=== PATIENT | male | born 1985 | race African-American/Black ===

== ENCOUNTER 2024-08-21 08:41 | Inpatient (IN) ==
[2024-08-21] MEDS: SODIUM CHLORIDE 0.9% 1,000 ML IV ONE (09:07)
[2024-08-21] MEDS: ONDANSETRON INJ 2 MG/ML 2 ML VIAL IV STA (09:07)
--- NOTE | 2024-08-21 09:24 | Emergency Department Note ---
ED Provider Note History of Present Illness Chief Complaint: Weakness Stated Complaint: WEAKNESS, STOMACH ACHE Time Seen by Provider: 08/21/24 08:48 Source: patient Mode of arrival: ambulatory Limitations: no limitations Patient is a 38-year-old male who presents to the emergency department with complaints of diffuse abdominal pain, nausea, vomiting, and diarrhea. Patient states that he got a tetanus vaccine on Sunday and states that he has not felt well since. Patient states he is unsure if that is related. Patient denies any shortness of breath or cough. Home Medications Medication Instructions Recorded Confirmed Type acetaminophen 500 mg capsule 1,000 mg (2 x 500 mg) PO Q6H PRN 08/23/24 Rx fever or pain #30 caps meloxicam 7.5 mg tablet 7.5 mg PO DAILY PRN pain 14 days 08/23/24 Rx #14 tabs ondansetron 4 mg disintegrating 4 mg PO DAILY PRN nausea and 08/23/24 Rx tablet vomiting 7 days #20 tabs Allergies Allergy/AdvReac Type Severity Reaction Status Date / Time No Known Allergies Allergy Unverified 08/21/24 12:54 Past Med/Surg History Problem List (Updated 08/21/24 @ 14:27 by Maki Yu PA-C) Rotavirus infection Tobacco use disorder Abnormal urinalysis SBO (small bowel obstruction) (Acute) Social History Smoking Status: Current every day smoker Tobacco Type: Cigarettes Do You Dip or Chew Tobacco: No; Hx Alcohol Use: Yes Hx Substance Use: No Preferred Language: [place] Irish Communication Ability: Effective Process Operator Required: No Beliefs That Will Affect Care: None Current Living Situation: Alone Current Living Situation Comment: Home with girlfriend Feels Safe at Home: Yes Assistive Devices: None Physical Exam Vital Signs Vital Signs - 24 hr 08/21/24 08:42 08/21/24 08:54 08/21/24 08:54 Temperature 36.4 C L Temperature Source Temporal Artery Scan Pulse Rate 110 H 84 Pulse Rate [Apical] Pulse Rate from SpO2 Sensor Respiratory Rate 18 16 Respiratory Effort / Characteristics Non-Labored Spontaneous Respiratory Depth Normal Respiratory Pattern Regular Blood Pressure 151/91 H Blood Pressure [Right Arm] Blood Pressure Mean 111 Blood Pressure Mean [Right Arm] Blood Pressure Position [Right Arm] Pulse Oximetry 98 97 97 Oxygen Delivery Method Room Air Room Air Room Air Sepsis Recent Fever Within 48 Hours No Sepsis New/Unexplained Change in Mental Status No Sepsis Action Taken by Nursing No Action Required 08/21/24 09:13 08/21/24 10:24 08/21/24 11:33 Temperature Temperature Source Pulse Rate 95 H 83 Pulse Rate [Apical] 81 Pulse Rate from SpO2 Sensor 82 Respiratory Rate 18 13 Respiratory Effort / Characteristics Non-Labored Spontaneous Respiratory Depth Normal Respiratory Pattern Regular Blood Pressure Blood Pressure [Right Arm] 127/81 Blood Pressure Mean Blood Pressure Mean [Right Arm] 96 Blood Pressure Position [Right Arm] Sitting Pulse Oximetry 99 98 Oxygen Delivery Method Room Air Sepsis Recent Fever Within 48 Hours Sepsis New/Unexplained Change in Mental Status Sepsis Action Taken by Nursing 08/21/24 12:00 Temperature Temperature Source Pulse Rate 81 Pulse Rate [Apical] Pulse Rate from SpO2 Sensor 83 Respiratory Rate 13 Respiratory Effort / Characteristics Respiratory Depth Respiratory Pattern Blood Pressure Blood Pressure [Right Arm] Blood Pressure Mean Blood Pressure Mean [Right Arm] Blood Pressure Position [Right Arm] Pulse Oximetry 98 Oxygen Delivery Method Sepsis Recent Fever Within 48 Hours Sepsis New/Unexplained Change in Mental Status Sepsis Action Taken by Nursing VITAL SIGNS - Vital signs and nursing notes were reviewed. GENERAL -38-year-old male appearing their stated age, who is in no acute distress. Communicates well with provider and answers questions appropriately. HEAD - Normocephalic, Atraumatic. No Whitt's Sign or Raccoon's Eyes. No depressed skull fractures palpable. EYES - PERRL with EOMI bilaterally. Sclera anicteric. Conjunctiva pink and moist with no injection noted. NECK - Neck with FROM. Supple to palpation. No lymphadenopathy noted. LUNGS - Chest wall symmetric without accessory muscle use, intercostals retractions, or central cyanosis. Normal vesicular breath sounds CTA B/L. No wheezes, rales, or rhonchi appreciated. CARDIAC - RRR with S1/S2. No murmur, rubs, or gallops appreciated. ABDOMEN- Soft, noted discomfort diffusely across the abdomen, bowel sounds present in all four quadrants. No palpable ascites or masses. EXTREMITIES - No edema present. +5/5 strength noted in UE/LE bilaterally. NEUROLOGIC -Sensory intact to light touch throughout. PSYCH - A&Ox3 and cooperates fully with examiner. Pt is very pleasant and interacts well with examiner Course Administered Medications Discontinued Medications Sodium Chloride (Nss) 1,000 mls @ 999 mls/hr IV .Q1H1M ONE Stop: 08/21/24 09:54 Last Infusion: 08/21/24 10:47 Dose: Infused Documented By: Admin: 08/21/24 09:07 Dose: 999 mls/hr Documented By: TANK Sodium Chloride (Nss) 1,000 mls @ 100 mls/hr IV .Q10H JENNY Stop: 08/22/24 13:14 Last Infusion: 08/22/24 18:57 Dose: Infused Documented By: Admin: 08/22/24 08:50 Dose: 100 mls/hr Documented By: Infusion: 08/22/24 08:50 Dose: Infused Documented By: Admin: 08/21/24 23:33 Dose: 100 mls/hr Documented By: Infusion: 08/21/24 23:32 Dose: Infused Documented By: Infusion: 08/21/24 21:46 Dose: 100 mls/hr Documented By: Infusion: 08/21/24 21:16 Dose: 0 mls/hr Documented By: Admin: 08/21/24 14:09 Dose: 100 mls/hr Documented By: UCHE Acetaminophen (Ofirmev) 1,000 mg in 100 mls @ 400 mls/hr IV Q8H PRN PRN Reason: Pain/Fever Stop: 08/24/24 13:09 Last Infusion: 08/21/24 21:40 Dose: Infused Documented By: Admin: 08/21/24 21:15 Dose: 400 mls/hr Documented By: Infusion: 08/21/24 16:11 Dose: Infused Documented By: Admin: 08/21/24 15:52 Dose: 400 mls/hr Documented By: YOSELIN Ceftriaxone Sodium (Rocephin) 2,000 mg in 50 mls @ 100 mls/hr IV NOW STA Stop: 08/21/24 14:06 Last Infusion: 08/21/24 15:19 Dose: Infused Documented By: Admin: 08/21/24 14:09 Dose: 100 mls/hr Documented By: UCHE Pantoprazole Sodium (Protonix) 40 mg in 10 mls @ 5 mls/min IV DAILY JENNY Stop: 09/21/24 08:59 Last Admin: 08/23/24 09:14 Dose: 5 mls/min Documented By: Admin: 08/22/24 08:49 Dose: 5 mls/min Documented By: NENA Ioversol (Optiray 320 100ml) 94 ml IV ONCE ONE Stop: 08/21/24 11:20 Last Admin: 08/21/24 11:20 Dose: 94 ml Documented By: FLOYD Ondansetron HCl (Ondansetron Inj 2 Mg/Ml 2 Ml Vial) 4 mg IV NOW STA Stop: 08/21/24 08:55 Last Admin: 08/21/24 09:07 Dose: 4 mg Documented By: TANK Medical Decision Making Differential Diagnosis Influenza, COVID, RSV, rhinovirus, gastroenteritis, norovirus, infectious diarrhea, dehydration, among others Medical Records Attestation: I reviewed the patient's medical records. Home Medications was personally reviewed by me Laboratory Data Attestation: I reviewed the patient's lab results. 08/23/24 06:08 08/23/24 06:08 Lab Results 08/21/24 08/21/24 Range/Units 09:13 11:39 WBC 5.16 (4.8-10.8) K/ul RBC 5.34 (4.70-6.10) M/uL Hgb 15.1 (14.0-18.0) g/dl Hct 47.0 (42.0-52.0) % MCV 88.0 (80.0-100.0) fL MCH 28.3 (25.0-34.0) pg MCHC 32.1 (32.0-36.0) g/dL RDW Std Deviation 42.7 (36.4-46.3) fL RDW Coeff of [place] 13.2 (11.5-14.5) % Plt Count 199 (130-400) K/uL MPV 10.1 (9.4-12.4) fL Immature Gran % (Auto) 0.4 % Neut % (Auto) 66.6 % Lymph % (Auto) 21.7 % [place] % (Auto) 10.7 % Eos % (Auto) 0.2 % Baso % (Auto) 0.4 % Neut # (Auto) 3.44 (1.40-6.50) K/uL Lymph # (Auto) 1.12 L (1.20-3.40) K/uL [place] # (Auto) 0.55 (0.11-0.59) K/uL Eos # (Auto) 0.01 (0.00-0.50) K/uL Baso # (Auto) 0.02 (0.00-0.20) K/uL Immature Gran # (Auto) 0.02 (0.01-0.20) K/uL Sodium 135 L (136-145) mmol/L Potassium 4.0 (3.5-5.1) mmol/L Chloride 105 (98-107) mmol/L Carbon Dioxide 24 (21-32) mmol/L Anion Gap 6 (3-11) BUN 13 (6-23) mg/dl Creatinine 1.23 (0.6-1.4) mg/dl Est Cr Clr Drug Dosing 102.1 ml/min eGFR 76.59 BUN/Creatinine Ratio 10.6 (10-20) Glucose 113 H (70-99(Fasting)) mg/dl Calcium 9.3 (8.6-10.3) mg/dl Total Bilirubin 0.4 (0.2-1.0) mg/dl AST 17 (13-39) U/L ALT 18 (7-52) U/L Alkaline Phosphatase 79 (34-104) U/L Total Protein 7.4 (6.0-8.3) gm/dl Albumin 4.4 (3.4-5.0) gm/dl Globulin 3.0 (2.5-4.0) gm/dl Albumin/Globulin Ratio 1.5 (0.9-2) Lipase 15 (11-82) U/L Urine Color Dark Yellow Urine Appearance Clear (Clear) Urine pH 5.5 (4.5-7.5) Ur Specific [place] 1.031 H (1.000-1.030) Urine Protein 1+ H (Negative) Urine Glucose (UA) Negative (Negative) Urine Ketones Trace H (Negative) Urine Blood Negative (Negative) Urine Nitrite Negative (Negative) Urine Bilirubin Negative (Negative) Urine Urobilinogen Negative (Negative) Ur Leukocyte Esterase Negative (Negative) Urine WBC (Auto) 6-10 H (0-5) /hpf Urine RBC (Auto) 0-2 (0-2) /hpf U Hyaline Cast (Auto) 3-5 H (0-2) /lpf U Epithel Cells (Auto) 3-5 H (0-2) /hpf Urine Bacteria (Auto) 1+ H (None Seen) WBC Casts Present A (None Prsent) /lpf Urine Mucus Present A (None Prsent) Stl C. cayetanensis PCR Not Detected (NotDetected) Stool Rotavirus A PCR DETECTED A* (NotDetected) Stl Adenov F 40/41 PCR Not Detected (NotDetected) Stool Astrovirus (PCR) Not Detected (NotDetected) Stool Campylobacter PCR Not Detected (NotDetected) Stl C. diff Tox B Gene Negative Cdiff Gene (Neg) Stool Cryptosporidium PCR Not Detected (NotDetected) Stl E.coli Shiga Tox PCR Not Detected (NotDetected) Stl Enterotoxigenic E PCR Not Detected (NotDetected) Stool EPEC (PCR) Not Detected (NotDetected) Stool EAEC (PCR) Not Detected (NotDetected) Stl E. histolytica PCR Not Detected (NotDetected) Stool Giardia Lamblia PCR Not Detected (NotDetected) Stool Salmonella PCR Not Detected (NotDetected) Stool Sapovirus (PCR) Not Detected (NotDetected) Stl P. shigelloides PCR Not Detected (NotDetected) Stl Shigella/EIEC PCR Not Detected (NotDetected) St Y.enterocolitica PCR Not Detected (NotDetected) Stool Vibrio (PCR) Not Detected (NotDetected) Stl Vibrio cholerae PCR Not Detected (NotDetected) Stl Norovirus GI/GII PCR Not Detected (NotDetected) Adenovirus (PCR) Not Detected (NotDetected) B. pertussis DNA (PCR) Not Detected (NotDetected) B.parapertussis DNA PCR Not Detected (NotDetected) C. pneumoniae DNA (PCR) Not Detected (NotDetected) Coronavirus OC43 (PCR) Not Detected (NotDetected) Coronavirus HKU1 (PCR) Not Detected (NotDetected) Coronavirus 229E (PCR) Not Detected (NotDetected) SARS-CoV-2 (PCR) Not Detected (NotDetected) Coronavirus NL63 (PCR) Not Detected (NotDetected) Human Metapneumovir PCR Not Detected (NotDetected) Influenza Type A (PCR) Not Detected (NotDetected) Influenza Type B (PCR) Not Detected (NotDetected) M. pneumoniae (PCR) Not Detected (NotDetected) Parainfluenza 1 (PCR) Not Detected (NotDetected) Parainfluenza 2 (PCR) Not Detected (NotDetected) Parainfluenza 3 (PCR) Not Detected (NotDetected) Parainfluenza 4 (PCR) Not Detected (NotDetected) RSV (PCR) Not Detected (NotDetected) Entero/Rhino (PCR) Not Detected (NotDetected) Imaging Data Radiologist's Impression: Abdomen/Pelvis CT 08/21/24 08:[address] WITH IV CONTRAST CT DOSE: 1380.63 mGy.cm HISTORY: abdominal pain, N/V/D TECHNIQUE: Multiaxial CT images of the abdomen and pelvis were performed following the IV administration of 90 cc of Optiray, A dose lowering technique was utilized adhering to the principles of ALARA. COMPARISON STUDY: None FINDINGS: ABDOMEN: Liver, gallbladder, spleen, pancreas, and adrenal glands are unremarkable. Kidneys show no hydronephrosis or calculi. There are a few small renal cysts. No abdominal aortic aneurysm. Pelvis: Prostate is mildly enlarged. Urinary bladder is nondistended. There is mild sigmoid diverticulosis. No acute diverticulitis. Colon is decompressed. There are multiple dilated small bowel loops at the jejunum and ileum measuring up to 4 cm diameter. Transition zone is at the terminal ileum. No significant small bowel wall thickening seen. There is mild haziness and mildly enlarged lymph nodes at the central small bowel mesentery. No free fluid, free air, or abscess. Osseous structures: No acute osseous findings. IMPRESSION: Findings consistent with small bowel obstruction with transition zone at the terminal ileum. ACT 112: Negative or not required by law. The above report was generated using voice recognition software. It may contain grammatical, syntax or spelling errors. Electronically signed by: Pete Scott M.D. 08/21/2024 11:45 AM MDM Narrative Patient is a 38-year-old male who presents to the emergency department with complaints of diffuse abdominal pain, nausea, vomiting, and diarrhea. Patient states that he got a tetanus vaccine on Sunday and states that he has not felt well since. Patient states he is unsure if that is related. Patient denies any shortness of breath or cough. Patient was evaluated by myself and findings were noted in the physical exam above. Patient was ordered IV placement, lab work, urinalysis, CT of the abdomen and pelvis, [employer] respiratory panel, [employer] stool panel, C. difficile test, and a liter of fluid and Zofran for nausea. Patient's lab work resulted was unremarkable. Patient has a normal white blood cell count of 5.16. Patient has no indication of anemia with hemoglobin of 15.1 and hematocrit of 47.0. Patient had no significant electrolyte imbalance. Patient had an upper respiratory viral panel that resulted negative for any findings. Patient had a urinalysis that was completed and was indicative of infection with positive bacteria in his urine. Patient had a CT completed that was interpreted by radiology to show a small bowel obstruction with transition zone at the terminal ileum. I discussed these findings with the patient and his significant other at bedside who both verbalized understanding. I discussed with the patient that he would need to be admitted to the hospital for bowel rest and further evaluation and management. Patient verbalized that he was not happy that he would have to stay in the hospital but was agreeable to that plan. I spoke with Addie with the [facility] hospitalist group and gave her a full report on the patient's chief complaint, current status, and the results of his lab work and imaging. She agreed to accept the patient under Dr. Macias's service. Please refer to [facility] hospitalist group's documentation for further evaluation and management of this patient. Impression SBO (small bowel obstruction) Discharge Plan Visit Data Chief Complaint: Weakness Stated Complaint: WEAKNESS, STOMACH ACHE ED Provider: Pranav Fischer ED Midlevel Provider: Dilcia Sorenson Discharge Problem: SBO (small bowel obstruction) Patient Disposition: Admitted As Inpatient Discharge Instructions Interventions: ED Discharge Assessment Last Done: 08/21/24 14:33
[2024-08-21 09:33] LABS: Basophils # (auto) 0.02 K/uL (0.00-0.20); Basophils % (auto) 0.4 %; Eosinophils # (auto) 0.01 K/uL (0.00-0.50); Eosinophils % (auto) 0.2 %; Hemoglobin 15.1 g/dl (14.0-18.0); Immature Granulocytes # (auto) 0.02 K/uL (0.01-0.20); Immature Granulocytes % (auto) 0.4 %; Lymphocytes # (auto) 1.12 K/uL (1.20-3.40); Lymphocytes % (auto) 21.7 %; Mean Corpuscular Hemoglobin 28.3 pg (25.0-34.0); Mean Corpuscular Hgb Conc 32.1 g/dL (32.0-36.0); Mean Platelet Volume 10.1 fL (9.4-12.4); Monocytes # (auto) 0.55 K/uL (0.11-0.59); Monocytes % (auto) 10.7 %; Neutrophils # (auto) 3.44 K/uL (1.40-6.50); Neutrophils % (auto) 66.6 %; Platelet Count 199 K/uL (130-400); RDW Coefficient of Variation 13.2 % (11.5-14.5); RDW Standard Deviation 42.7 fL (36.4-46.3); Red Blood Count 5.34 M/uL (4.70-6.10); White Blood Count 5.16 K/ul (4.8-10.8)
[2024-08-21 09:50] LABS: Albumin Globulin Ratio 1.5 (0.9-2); Albumin Level 4.4 gm/dl (3.4-5.0); BUN Creatinine Ratio 10.6 (10-20); Bilirubin,Total 0.4 mg/dl (0.2-1.0); Calcium 9.3 mg/dl (8.6-10.3); Creatinine Clr Calc Pharmacy 102.1 ml/min; Total Protein 7.4 gm/dl (6.0-8.3)
[2024-08-21 10:46] LABS: Adenovirus PCR Not Detected (NotDetected); Bordetella parapertussis PCR Not Detected (NotDetected); Bordetella pertussis PCR Not Detected (NotDetected); Chlamydia pneumoniae PCR Not Detected (NotDetected); Coronavirus 229E PCR Not Detected (NotDetected); Coronavirus CoV-2 (COVID19)PCR Not Detected (NotDetected); Coronavirus HKU1 PCR Not Detected (NotDetected); Coronavirus NL63 PCR Not Detected (NotDetected); Coronavirus OC43PCR Not Detected (NotDetected); Human Metapneumovirus PCR Not Detected (NotDetected); Influenza A PCR Not Detected (NotDetected); Influenza B PCR Not Detected (NotDetected); Mycoplasma pneumoniae PCR Not Detected (NotDetected); Parainfluenza Virus 1 PCR Not Detected (NotDetected); Parainfluenza Virus 2 PCR Not Detected (NotDetected); Parainfluenza Virus 3 PCR Not Detected (NotDetected); Parainfluenza Virus 4 PCR Not Detected (NotDetected); Respiratory Syncytial VirusPCR Not Detected (NotDetected); Rhinovirus/Enterovirus PCR Not Detected (NotDetected)
[2024-08-21] MEDS: OPTIRAY 320 100ml IV ONE (11:20)
--- NOTE | 2024-08-21 11:46 | CT Scan Report ---
ABDOMEN AND PELVIS CT WITH IV CONTRAST CT DOSE: 1380.63 mGy.cm HISTORY: abdominal pain, N/V/D TECHNIQUE: Multiaxial CT images of the abdomen and pelvis were performed following the IV administrat ion of 90 cc of Optiray, A dose lowering technique was utilized adhering to the principles of ALARA. COMPARISON STUDY: None FINDINGS: ABDOMEN: Liver, gallbladder, spleen, pancreas, and adrenal glands are unremarkable. Kidneys show no h ydronephrosis or calculi. There are a few small renal cysts. No abdominal aortic aneurysm. Pelvis: Prostate is mildly enlarged. Urinary bladder is nondistended. There is mild sigmoid diverticu losis. No acute diverticulitis. Colon is decompressed. There are multiple dilated small bowel loops a t the jejunum and ileum measuring up to 4 cm diameter. Transition zone is at the terminal ileum. No s ignificant small bowel wall thickening seen. There is mild haziness and mildly enlarged lymph nodes a t the central small bowel mesentery. No free fluid, free air, or abscess. Osseous structures: No acute osseous findings. IMPRESSION: Findings consistent with small bowel obstruction with transition zone at the terminal ile um. ACT 112: Negative or not required by law. The above report was generated using voice recognition software. It may contain grammatical, syntax o r spelling errors. Electronically signed by: Pete Scott M.D. 08/21/2024 11:45 AM
[2024-08-21 12:10] LABS: Appearance Urine Clear (Clear); Bilirubin Urine Negative (Negative); Blood Urine Negative (Negative); Color Urine Dark Yellow; Glucose Urine UA Negative (Negative); Ketones Urine Trace (Negative); Leukocyte Esterase Urine Negative (Negative); Nitrite Urine Negative (Negative); Protein Urine 1+ (Negative); RBC Urine Automated 0-2 /hpf (0-2); Specific Gravity Urine 1.031 (1.000-1.030); Urobilinogen Urine Negative (Negative); pH Urine 5.5 (4.5-7.5)
[2024-08-21 12:18] LABS: Bacteria Urine Automated 1+ (None Seen); Mucus Urine Present (None Prsent); White Blood Cell Casts Urine Present /lpf (None Prsent)
--- NOTE | 2024-08-21 12:36 | History & Physical Report ---
Date of Service August 21, 2024 Assessment & Plan (1) SBO (small bowel obstruction): Plan: Jose A Avendaño is a 38y/o M with no significant PMHx who presented to the ED from home with complaints of N/V/D, diffuse abdominal pain plus generalized weakness and was found to have a SBO in addition to abnormal UA c/f possible UTI. C. diff testing negative. Stool PCR testing pending. ED labs personally reviewed and grossly unremarkable. Initially tachycardic but now resolved - suspect 2/2 pain. Otherwise VSS. CTAP findings consistent with SBO with transition zone at the terminal ileum. S/p 1L NSS in ED. Appreciate general surgery consult. Repeat KUB in AM. Continue conservative management with NPO status, IVF resuscitation and PRN pain control plus antiemetics. (2) Tobacco use disorder: Plan: Smoke 1/2-1ppd. Denies need for nicotine patch at this time. Encourage smoking cessation. (3) Abnormal urinalysis: Plan: UA with 6-10 WBC, 1+ bacteria and WBC casts; Possible UTI vs. contamination as patient denies any urinary complaints >> will start on IV Rocephin pending urine culture result. DVT Prophylaxis: SCDs/TEDs for now. Code Status: FULL CODE PCP: NO PCP - [facility]'s name. Disposition: Admit to med/surg for further inpatient evaluation and management. Patient seen in collaboration with Dr. Macias. Please see addendum. I spent a total of 40 minutes coordinating, documenting, and providing care for this patient excluding time spent in the performance of separately billed s ervices or time spent by another provider/QHP. This included personally reviewing all current laboratories and imaging studies, medical reconciliation, outpatient chart review and discussion with specialists. This chart was completed in part utilizing Speech Voice Recognition Software. Grammatical errors, random word insertions, pronoun errors, and incomplete sentences are an occasional consequence of this system due to software limitations, ambient noise, and hardware issues. Any formal questions or concerns about the content, text, or information contained within the body of this dictation should be directly addressed to the provider for clarification. History of Present Illness Chief Complaint: N/V/D, Generalized Weakness and Diffuse Abdominal Pain Primary Care Provider: NO PCP Jose A Avendaño is a 38y/o M with no significant PMHx who presented to the ED from home with complaints of N/V/D, diffuse abdominal pain and generalized weakness. History obtained from the patient, significant other at bedside, discussion with ED provider and associated chart review. Notes he got his tetanus vaccine this past Sunday and has been feeling unwell since with complaints of diarrhea plus diffuse abdominal pain and generalized weakness. Started to develop nausea and vomiting this morning with subsequent lack of an appetite. Denies any SOB, palpitations or chest pain. No prior surgical history per his recollection - cannot access his PCP records through the [facility]. He cannot recall which provider he sees through the [facility]. No reported fevers. No recent trauma or injuries. Most recent BM while in the ED. Has recognized some rectal bleeding but notes this is due to his irritated hemorrhoids. Denies any dysuria or hematuria. No increase in urinary frequency either. Notes he has not passed any flatus since last evening. Feels abdominal pain is now more so in his mid lower abdominal region. Vitals in ED notable for tachycardia which is likely 2/2 pain - resolved at time of admission. EKG obtained which revealed NSR and QTc 329ms. S/p 1L NSS in ED. Labs reviewed and grossly unremarkable. UA c/f possible infection vs contamination with 1+ bacteria, evidence of WBC casts. C. difficile testing negative. Stool PCR testing pending. Respiratory BioFire panel negative. CTAP findings consistent with SBO with transition zone at the terminal ileum. Allergies Allergy/AdvReac Type Severity Reaction Status Date / Time No Known Allergies Allergy Unverified 08/21/24 12:54 Home Medications Medication Instructions Recorded Confirmed Type No Known Home Medications 08/21/24 08/21/24 History Past Med/Surg History Problem List (Updated 08/21/24 @ 13:41 by Erika Do PA-C) Tobacco use disorder Abnormal urinalysis SBO (small bowel obstruction) (Acute) Social History Smoking Status: Current every day smoker Preferred Language: Vietnamese Feels Safe at Home: Yes Review of Systems Review of Systems: At least ten systems reviewed and negative, except as noted in the HPI. Physical Exam Physical Exam: General: WD/WN. M. Sitting up in bed. Appears somewhat uncomfortable but NAD. A+Ox3. Significant other at bedside. HEENT: Normocephalic, atraumatic. Conjunctivae normal. External ear and nose normal, somewhat dry mucous membranes. Respiratory: Normal respiratory effort and lungs clear to auscultation bilaterally. No accessory muscle use. Cardiovascular: Regular rate and rhythm. Normal peripheral pulses. No BLE edema. Abdomen/GI: Bowel sounds present in all quadrants but notably decreased. Soft but TTP across lower abdominal regions. No guarding. Extremities/Musculoskeletal: No cyanosis or clubbing, extremities motor strength intact, moves all extremities. Neurologic: No overt focal deficits, CN's II-XI not formally tested but appear grossly intact bilaterally. Results & Data Results & Data Vital Signs (Past 12 Hours) Vital Signs Temp Pulse Pulse Resp BP BP Pulse Ox 08/21/24 10:24 81 18 127/81 99 08/21/24 09:13 95 H 08/21/24 08:54 84 16 97 08/21/24 08:54 97 08/21/24 08:42 36.4 C L 110 H 18 151/91 H 98 O2 Del Method 08/21/24 10:24 Room Air 08/21/24 09:13 08/21/24 08:54 Room Air 08/21/24 08:54 Room Air 08/21/24 08:42 Room Air Laboratory Results Short CBC 08/21/24 Range/Units 09:13 WBC 5.16 (4.8-10.8) K/ul Hgb 15.1 (14.0-18.0) g/dl Hct 47.0 (42.0-52.0) % Plt Count 199 (130-400) K/uL BMP 08/21/24 09:13 Sodium 135 L Potassium 4.0 Chloride 105 Carbon Dioxide 24 BUN 13 Creatinine 1.23 Glucose 113 H Calcium 9.3 Liver Function 08/21/24 Range/Units 09:13 Total Bilirubin 0.4 (0.2-1.0) mg/dl AST 17 (13-39) U/L ALT 18 (7-52) U/L Alkaline Phosphatase 79 (34-104) U/L Albumin 4.4 (3.4-5.0) gm/dl Urine 08/21/24 Range/Units 11:39 Urine Color Dark Yellow Urine Appearance Clear (Clear) Urine pH 5.5 (4.5-7.5) Ur Specific [place] 1.031 H (1.000-1.030) Urine Protein 1+ H (Negative) Urine Glucose (UA) Negative (Negative) Diagnostic Findings Abdomen/Pelvis CT 08/21/24 08:[address] WITH IV CONTRAST CT DOSE: 1380.63 mGy.cm HISTORY: abdominal pain, N/V/D TECHNIQUE: Multiaxial CT images of the abdomen and pelvis were performed following the IV administration of 90 cc of Optiray, A dose lowering technique was utilized adhering to the principles of ALARA. COMPARISON STUDY: None FINDINGS: ABDOMEN: Liver, gallbladder, spleen, pancreas, and adrenal glands are unremarkable. Kidneys show no hydronephrosis or calculi. There are a few small renal cysts. No abdominal aortic aneurysm. Pelvis: Prostate is mildly enlarged. Urinary bladder is nondistended. There is mild sigmoid diverticulosis. No acute diverticulitis. Colon is decompressed. There are multiple dilated small bowel loops at the jejunum and ileum measuring up to 4 cm diameter. Transition zone is at the terminal ileum. No significant small bowel wall thickening seen. There is mild haziness and mildly enlarged lymph nodes at the central small bowel mesentery. No free fluid, free air, or abscess. Osseous structures: No acute osseous findings. IMPRESSION: Findings consistent with small bowel obstruction with transition zone at the terminal ileum. ACT 112: Negative or not required by law. The above report was generated using voice recognition software. It may contain grammatical, syntax or spelling errors. Electronically signed by: Pete Scott M.D. 08/21/2024 11:45 AM Medications Administered Discontinued Medications Sodium Chloride (Nss) 1,000 mls @ 999 mls/hr IV .Q1H1M ONE Stop: 08/21/24 09:54 Last Infusion: 08/21/24 10:47 Dose: Infused Documented By: Admin: 08/21/24 09:07 Dose: 999 mls/hr Documented By: TANK Ioversol (Optiray 320 100ml) 94 ml IV ONCE ONE Stop: 08/21/24 11:20 Last Admin: 08/21/24 11:20 Dose: 94 ml Documented By: FLOYD Ondansetron HCl (Ondansetron Inj 2 Mg/Ml 2 Ml Vial) 4 mg IV NOW STA Stop: 08/21/24 08:55 Last Admin: 08/21/24 09:07 Dose: 4 mg Documented By: KR Code Status & VTE Plan Code Status FULL CODE Supervising Physician Co-Signing Physician Notes Patient seen and examined independently. Discussed with above provider. Patient presents to the hospital with nausea, vomiting and abdominal discomfort for several days. Stool PCR panel is positive for rotavirus infection. Denies any other contacts were sick. CT abdomen pelvis shows small bowel obstruction. Plan to treat with conservative management with IV fluid, bowel rest, pain control. Advance diet as tolerated. He was initially hesitant to stay in the hospital. I discussed with patient regarding possible complications of small bowel obstruction which include bowel ischemia, multiorgan failure, dehydration, electrolyte imbalance, .He verbalized and understood the risks. He is agreeable to stay in the hospital for now to continue with the treatment. I have reviewed the advanced practitioner's documentation, and I agree with, and take responsibility for the plan of care I spent a total of 30 minutes coordinating, documenting, and providing care for this patient excluding time spent in the performance of separately billed services. All of the aforementioned completed while collaborating with the assigned advanced practitioner for a full treatment plan
[2024-08-21] MEDS ORDERED: KETOROLAC TROMETHAMINE 15 MG/ML VIAL IV PRN (13:10)
[2024-08-21 13:18] LABS: Adenovirus F 40/41 PCR Not Detected (NotDetected); Astrovirus PCR Not Detected (NotDetected); Campylobacter PCR Not Detected (NotDetected); Cryptosporidium PCR Not Detected (NotDetected); Cyclospora cayetanensis PCR Not Detected (NotDetected); Entamoeba histolytica PCR Not Detected (NotDetected); Enteroaggregative E.coli(EAEC) Not Detected (NotDetected); Enteropathogenic E.coli (EPEC) Not Detected (NotDetected); Enterotoxigenic E.coli (ETEC) Not Detected (NotDetected); Giardia lamblia PCR Not Detected (NotDetected); Norovirus GI/GII PCR Not Detected (NotDetected); Plesiomonas shigelloides PCR Not Detected (NotDetected); Salmonella PCR Not Detected (NotDetected); Sapovirus PCR Not Detected (NotDetected); Shiga-like Toxin E.coli (STEC) Not Detected (NotDetected); Shigella/Enteroinvasive E.coli Not Detected (NotDetected); Vibrio cholerae PCR Not Detected (NotDetected); Vibrio species PCR Not Detected (NotDetected); Yersinia enterocolitica PCR Not Detected (NotDetected)
[2024-08-21 13:50] LABS: Rotavirus A PCR DETECTED (NotDetected)
[2024-08-21] MEDS: SODIUM CHLORIDE 0.9% 1,000 ML IV SCH (14:09)
[2024-08-21] MEDS: cefTRIAXone SODIUM 2,000 MG/50 ML BAG IV STA (14:09)
--- NOTE | 2024-08-21 14:25 | Surgery Consultation ---
Date of Consultation August 21, 2024 Assessment & Plan (1) SBO (small bowel obstruction): (2) Rotavirus infection: 38 yo male with 4 day history of mid abdominal pain with associated nausea, diarrhea, vomiting x 1 with generalized fatigue, malaise and anorexia. Stool studies positive for Rotavirus. CT scan abdomen and pelvis with SBO with transition at distal ileum. No prior abdominal surgical history. Abdomen soft, mildly distended with tenderness throughout more in med abdomen without peritonitis , rigidity, or guarding. CT scan personally reviewed, likely transient obstruction due to Rotavirus infection. No acute surgical intervention required at this time. Conservative management: Bowel rest for now, npo, iv fluids, iv pain management as needed, antiemetics as needed, encourage ambulation. Will follow along. Discussed with Dr. Cameron who agrees with above. History of Present Illness Reason for Consultation: SBO Requesting Physician: Erika Do PA-C History of Present Illness Matthew a 38 yo male who presented to the emergency department with complaint of nausea, diarrhea, abdominal pain and vomiting x 1 that started on Sunday. States he has had generalized mid abdominal pain with increased waves of pain for a few minutes and then goes back to generalized pain. Currently rating pain 8/10. Has not had any pain medication. Was having diarrhea at least 3x/day. No one else sick at home. No fevers but chills. no chest pain or shortness of breath. Urinating but decreased in frequency. Generalized fatigue, aches, and low appetite. No prior abdominal surgeries. No blood in stools or urine. 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 Beliefs That Will Affect Care: None Current Living Situation: Alone Current Living Situation Comment: Home with girlfriend Other Information That Helps Us Care for You: No Feels Safe at Home: Yes Safety Concerns: Feels Safe At This Time Assistive Devices: CPAP Review of Systems Review of Systems: All systems reviewed & are unremarkable except as noted in HPI & below Physical Exam Constitutional: WD/WN, vitals as above cooperative and comfortable; no acute distress and not ill appearing Respiratory: normal respiratory effort, lungs clear to auscultation Cardiovascular: RRR, no murmur, no edema Gastrointestinal (Abdomen): Inspection/Auscultation: abdomen normal to inspection; abdomen not distended Percussion/Palpation: + abdomen tender (generalized tenderness more in mid abdomen) and abdomen soft; no guarding, abdomen not rigid and abdomen not firm no peritonitis Skin: no rashes, warm and dry Psychiatric: Orientation: alert and oriented x 3 Results & Data Vital Signs (Past 12 Hours) Vital Signs Temp Pulse Pulse Resp BP BP Pulse Ox 08/21/24 10:24 81 18 127/81 99 08/21/24 09:13 95 H 08/21/24 08:54 84 16 97 08/21/24 08:54 97 08/21/24 08:42 36.4 C L 110 H 18 151/91 H 98 O2 Del Method 08/21/24 10:24 Room Air 08/21/24 09:13 08/21/24 08:54 Room Air 08/21/24 08:54 Room Air 08/21/24 08:42 Room Air Laboratory Results 08/21/24 08/21/24 Range/Units 11:39 09:13 WBC 5.16 (4.8-10.8) K/ul RBC 5.34 (4.70-6.10) M/uL Hgb 15.1 (14.0-18.0) g/dl Hct 47.0 (42.0-52.0) % MCV 88.0 (80.0-100.0) fL MCH 28.3 (25.0-34.0) pg MCHC 32.1 (32.0-36.0) g/dL RDW Std Deviation 42.7 (36.4-46.3) fL RDW Coeff of Maricruz 13.2 (11.5-14.5) % Plt Count 199 (130-400) K/uL MPV 10.1 (9.4-12.4) fL Immature Gran % (Auto) 0.4 % Neut % (Auto) 66.6 % Lymph % (Auto) 21.7 % [place] % (Auto) 10.7 % Eos % (Auto) 0.2 % Baso % (Auto) 0.4 % Neut # (Auto) 3.44 (1.40-6.50) K/uL Lymph # (Auto) 1.12 L (1.20-3.40) K/uL [place] # (Auto) 0.55 (0.11-0.59) K/uL Eos # (Auto) 0.01 (0.00-0.50) K/uL Baso # (Auto) 0.02 (0.00-0.20) K/uL Immature Gran # (Auto) 0.02 (0.01-0.20) K/uL Sodium 135 L (136-145) mmol/L Potassium 4.0 (3.5-5.1) mmol/L Chloride 105 (98-107) mmol/L Carbon Dioxide 24 (21-32) mmol/L Anion Gap 6 (3-11) BUN 13 (6-23) mg/dl Creatinine 1.23 (0.6-1.4) mg/dl Est Cr Clr Drug Dosing 102.1 ml/min eGFR 76.59 BUN/Creatinine Ratio 10.6 (10-20) Glucose 113 H (70-99(Fasting)) mg/dl Calcium 9.3 (8.6-10.3) mg/dl Total Bilirubin 0.4 (0.2-1.0) mg/dl AST 17 (13-39) U/L ALT 18 (7-52) U/L Alkaline Phosphatase 79 (34-104) U/L Total Protein 7.4 (6.0-8.3) gm/dl Albumin 4.4 (3.4-5.0) gm/dl Globulin 3.0 (2.5-4.0) gm/dl Albumin/Globulin Ratio 1.5 (0.9-2) Lipase 15 (11-82) U/L Urine Color Dark Yellow Urine Appearance Clear (Clear) Urine pH 5.5 (4.5-7.5) Ur Specific [place] 1.031 H (1.000-1.030) Urine Protein 1+ H (Negative) Urine Glucose (UA) Negative (Negative) Urine Ketones Trace H (Negative) Urine Blood Negative (Negative) Urine Nitrite Negative (Negative) Urine Bilirubin Negative (Negative) Urine Urobilinogen Negative (Negative) Ur Leukocyte Esterase Negative (Negative) Urine WBC (Auto) 6-10 H (0-5) /hpf Urine RBC (Auto) 0-2 (0-2) /hpf U Hyaline Cast (Auto) 3-5 H (0-2) /lpf U Epithel Cells (Auto) 3-5 H (0-2) /hpf Urine Bacteria (Auto) 1+ H (None Seen) WBC Casts Present A (None Prsent) /lpf Urine Mucus Present A (None Prsent) Stl C. cayetanensis PCR Not Detected (NotDetected) Stool Rotavirus A PCR DETECTED A* (NotDetected) Stl Adenov F 40/41 PCR Not Detected (NotDetected) Stool Astrovirus (PCR) Not Detected (NotDetected) Stool Campylobacter PCR Not Detected (NotDetected) Stl C. diff Tox B Gene Negative Cdiff Gene (Neg) Stool Cryptosporidium PCR Not Detected (NotDetected) Stl E.coli Shiga Tox PCR Not Detected (NotDetected) Stl Enterotoxigenic E PCR Not Detected (NotDetected) Stool EPEC (PCR) Not Detected (NotDetected) Stool EAEC (PCR) Not Detected (NotDetected) Stl E. histolytica PCR Not Detected (NotDetected) Stool Giardia Lamblia PCR Not Detected (NotDetected) Stool Salmonella PCR Not Detected (NotDetected) Stool Sapovirus (PCR) Not Detected (NotDetected) Stl P. shigelloides PCR Not Detected (NotDetected) Stl Shigella/EIEC PCR Not Detected (NotDetected) St Y.enterocolitica PCR Not Detected (NotDetected) Stool Vibrio (PCR) Not Detected (NotDetected) Stl Vibrio cholerae PCR Not Detected (NotDetected) Stl Norovirus GI/GII PCR Not Detected (NotDetected) Adenovirus (PCR) Not Detected (NotDetected) B. pertussis DNA (PCR) Not Detected (NotDetected) B.parapertussis DNA PCR Not Detected (NotDetected) C. pneumoniae DNA (PCR) Not Detected (NotDetected) Coronavirus OC43 (PCR) Not Detected (NotDetected) Coronavirus HKU1 (PCR) Not Detected (NotDetected) Coronavirus 229E (PCR) Not Detected (NotDetected) SARS-CoV-2 (PCR) Not Detected (NotDetected) Coronavirus NL63 (PCR) Not Detected (NotDetected) Human Metapneumovir PCR Not Detected (NotDetected) Influenza Type A (PCR) Not Detected (NotDetected) Influenza Type B (PCR) Not Detected (NotDetected) M. pneumoniae (PCR) Not Detected (NotDetected) Parainfluenza 1 (PCR) Not Detected (NotDetected) Parainfluenza 2 (PCR) Not Detected (NotDetected) Parainfluenza 3 (PCR) Not Detected (NotDetected) Parainfluenza 4 (PCR) Not Detected (NotDetected) RSV (PCR) Not Detected (NotDetected) Entero/Rhino (PCR) Not Detected (NotDetected) Diagnostic Findings ABDOMEN AND PELVIS CT WITH IV CONTRAST CT DOSE: 1380.63 mGy.cm HISTORY: abdominal pain, N/V/D TECHNIQUE: Multiaxial CT images of the abdomen and pelvis were performed following the IV administration of 90 cc of Optiray, A dose lowering technique was utilized adhering to the principles of ALARA. COMPARISON STUDY: None FINDINGS: ABDOMEN: Liver, gallbladder, spleen, pancreas, and adrenal glands are unremarkable. Kidneys show no hydronephrosis or calculi. There are a few small renal cysts. No abdominal aortic aneurysm. Pelvis: Prostate is mildly enlarged. Urinary bladder is nondistended. There is mild sigmoid diverticulosis. No acute diverticulitis. Colon is decompressed. There are multiple dilated small bowel loops at the jejunum and ileum measuring up to 4 cm diameter. Transition zone is at the terminal ileum. No significant small bowel wall thickening seen. There is mild haziness and mildly enlarged lymph nodes at the central small bowel mesentery. No free fluid, free air, or abscess. Osseous structures: No acute osseous findings. IMPRESSION: Findings consistent with small bowel obstruction with transition zone at the terminal ileum. I personally reviewed CT scan images, concur with above findings.
[2024-08-21] MEDS ORDERED: MAGNESIUM HYDROXIDE SUSP 30 ML UDC PO PRN (15:23)
[2024-08-21] MEDS ORDERED: POLYETHYLENE (MIRALAX) 17 GM PACK PO PRN (15:23)
[2024-08-21] MEDS ORDERED: ACETAMINOPHEN 325 MG TAB PO PRN (15:23)
[2024-08-21] MEDS ORDERED: ONDANSETRON INJ 2 MG/ML 2 ML VIAL IV PRN (15:23)
[2024-08-21] MEDS: ACETAMINOPHEN 1,000 MG/100 ML VIAL IV PRN (15:52)
--- NOTE | 2024-08-21 22:55 | Electrocardiogram Report ---
Test Reason : Blood Pressure : */* mmHG Vent. Rate : 79 BPM Atrial Rate : 79 BPM P-R Int : 202 ms QRS Dur : 78 ms QT Int : 342 ms P-R-T Axes : 57 66 37 degrees QTcB Int : 392 ms Normal sinus rhythm Normal ECG No previous ECGs available Confirmed by Eliu Copeland ([id number]) on 08/21/2024 10:55:17 PM Referred By: REFERRED SELF Confirmed By: Eliu Copeland
[2024-08-22 06:48] LABS: Hematocrit (blood only) 39.7 % (42.0-52.0); Hemoglobin 12.8 g/dl (14.0-18.0); Mean Corpuscular Hemoglobin 28.6 pg (25.0-34.0); Mean Corpuscular Hgb Conc 32.2 g/dL (32.0-36.0); Mean Corpuscular Volume 88.6 fL (80.0-100.0); Mean Platelet Volume 9.9 fL (9.4-12.4); Platelet Count 167 K/uL (130-400); RDW Coefficient of Variation 13.1 % (11.5-14.5); RDW Standard Deviation 42.7 fL (36.4-46.3); Red Blood Count 4.48 M/uL (4.70-6.10)
[2024-08-22 07:00] LABS: BUN Creatinine Ratio 8.9 (10-20); Calcium 8.5 mg/dl (8.6-10.3); Creatinine Clr Calc Pharmacy 124.6 ml/min; Magnesium 1.8 mg/dl (1.7-2.4)
[2024-08-22] MEDS: PANTOprazole 40 MG/10 ML SYR IV SCH (08:49)
--- NOTE | 2024-08-22 09:11 | XRay Report ---
KUB HISTORY: SBO COMPARISON STUDY: CT scan yesterday FINDINGS: There are multiple dilated small bowel loops measuring up to 5 cm diameter. There is no col onic distention. No gross free air. IMPRESSION: Stable small bowel distention. ACT 112: Negative or not required by law. The above report was generated using voice recognition software. It may contain grammatical, syntax o r spelling errors. Electronically signed by: Pete Scott M.D. 08/22/2024 9:09 AM
--- NOTE | 2024-08-22 10:52 | Surgery Progress Note ---
Date of Service August 22, 2024 Assessment & Plan (1) SBO (small bowel obstruction): (2) Rotavirus infection: Plan: 38 yo male with 4 day history of mid abdominal pain with associated nausea, diarrhea, vomiting x 1 with generalized fatigue, malaise and anorexia. Stool studies positive for Rotavirus. CT scan abdomen and pelvis with SBO with transition at distal ileum. No prior abdominal surgical history. Abdomen soft, mildly distended with tenderness throughout more in med abdomen without peritonitis , rigidity, or guarding. CT scan personally reviewed, likely transient obstruction due to Rotavirus infection. 08/22/24 avss KUB with stable small bowel distension, air in colon +flatus and + bm Abdomen soft, pain only after ambulating hallway No acute surgical intervention required at this time. Conservative management: can advance to clears and likely as tolerated surgery will follow peripherally Discussed with Dr. Cameron who agrees with above. Admission and Anticipated Discharge Date Admission Date: August 21, 2024 Subjective feeling better, abdominal pain not as severe pain more after walking hallway no n,v hungry wants foods passing alot of gas this am and had bowel movement since being up on the floor from ED no fever or chills Physical Exam Constitutional: WD/WN, vitals as above cooperative and comfortable; no acute distress and not ill appearing Respiratory: normal respiratory effort; no respiratory distress Gastrointestinal (Abdomen): Inspection/Auscultation: abdomen normal to inspection Percussion/Palpation: abdomen soft; abdomen nontender, no guarding, abdomen not rigid and abdomen not firm Psychiatric: A+Ox3, euthymic affect Results & Data Vital Signs (Past 12 Hours) Vital Signs Temp Pulse Resp BP Pulse Ox O2 Del Method 08/22/24 07:33 36.6 C 66 16 117/75 99 Room Air Laboratory Results 08/22/24 Range/Units 06:15 WBC 4.20 L (4.8-10.8) K/ul RBC 4.48 L (4.70-6.10) M/uL Hgb 12.8 L (14.0-18.0) g/dl Hct 39.7 L (42.0-52.0) % MCV 88.6 (80.0-100.0) fL MCH 28.6 (25.0-34.0) pg MCHC 32.2 (32.0-36.0) g/dL RDW Std Deviation 42.7 (36.4-46.3) fL RDW Coeff of Maricruz 13.1 (11.5-14.5) % Plt Count 167 (130-400) K/uL MPV 9.9 (9.4-12.4) fL Sodium 138 (136-145) mmol/L Potassium 4.0 (3.5-5.1) mmol/L Chloride 108 H (98-107) mmol/L Carbon Dioxide 26 (21-32) mmol/L Anion Gap 4 (3-11) BUN 9 (6-23) mg/dl Creatinine 1.01 (0.6-1.4) mg/dl Est Cr Clr Drug Dosing 124.6 ml/min eGFR 97.02 BUN/Creatinine Ratio 8.9 L (10-20) Glucose 101 H (70-99(Fasting)) mg/dl Calcium 8.5 L (8.6-10.3) mg/dl Magnesium 1.8 (1.7-2.4) mg/dl
[2024-08-22] MEDS ORDERED: cefTRIAXone SODIUM 2,000 MG/50 ML BAG IV SCH (13:00)
--- NOTE | 2024-08-22 16:40 | Hospitalist Progress Note ---
Date of Service August 22, 2024 Assessment & Plan (1) SBO (small bowel obstruction): Plan: Jose A Avendaño is a 38y/o M with no significant PMHx who presented to the ED from home with complaints of N/V/D, diffuse abdominal pain plus generalized weakness and was found to have a SBO in addition to abnormal UA c/f possible UTI. -C. diff testing negative. Stool PCR testing pending. -Initially tachycardic but now resolved - suspect 2/2 pain. Otherwise VSS. -CTAP findings consistent with SBO with transition zone at the terminal ileum. S/p 1L NSS in ED. Plan: -Appreciate general surgery consult -continue IV fluids, promote ambulation -continue prn pain control -advance diet per surgery (2) Tobacco use disorder: Plan: -Smoke 1/2-1ppd. Denies need for nicotine patch at this time. Encourage smoking cessation. (3) Abnormal urinalysis: Plan: -UA with 6-10 WBC, 1+ bacteria and WBC casts; -Possible UTI vs. contamination as patient denies any urinary complaints Plan I spent a total of 50 minutes in direct patient care, including [id number] time with the patient and/or family, reviewing medical records, ordering and reviewing diagnostic tests, and coordinating care with other healthcare providers. This time includes: history taking, physical examination, medical decision making, counseling, ECG interpretation, imaging interpretation, lab interpretation, orders, and education, excluding time spent in the performance of separately billed services. Admission and Anticipated Discharge Date Admission Date: August 21, 2024 Subjective Patient seen and examined at bedside. Patient doing better today. Looking forward to advancing diet, still has some abdominal pain, worse with movement. Had BM last night, passing gas at this time. Review of Systems Review of Systems: CONSTITUTIONAL: Patient denies fevers, chills, sweats and weight changes. EYES: Patient denies any visual symptoms. EARS, NOSE, AND THROAT: No difficulties with hearing. No symptoms of rhinitis or sore throat. CARDIOVASCULAR: Patient denies chest pains, palpitations, orthopnea and paroxysmal nocturnal dyspnea. RESPIRATORY: No dyspnea on exertion, no wheezing or cough. GI: pain, constipation : No urinary hesitancy or dribbling. No nocturia or urinary frequency. No abnormal urethral discharge. MUSCULOSKELETAL: No myalgias or arthralgias. NEUROLOGIC: No chronic headaches, no seizures. Patient denies numbness, tingling or weakness. PSYCHIATRIC: Patient denies problems with mood disturbance. No problems with anxiety. ENDOCRINE: No excessive urination or excessive thirst. DERMATOLOGIC: Patient denies any rashes or skin changes. Physical Exam Physical Exam: Gen: A&O 3 NAD HEENT: NCAT, EOMI, not icteric. External ears normal. No rhinorrhea. Moist mucou s membranes. Neck: Supple, full range of motion, no observable masses, No meningeal sign. Lungs: No Respiratory distress. CV: RRR, no edema. Abdomen: tender to palpation in periumbical, epigastric region MSK: No joint swelling, no redness. Skin: No rashes, petechiae, lesions. Normal color per patient. Neuro: Normal Gait, Grossly intact. Psych: Appropriate for situation. Results & Data Results & Data Vital Signs (Past 12 Hours) Vital Signs Temp Pulse Resp BP Pulse Ox O2 Del Method 08/22/24 16:19 36.6 C 72 17 120/76 99 Room Air 08/22/24 07:33 36.6 C 66 16 117/75 99 Room Air Laboratory Results -personally reviewed, improved creatinine with fluids, no leukocytosis noted Diagnostic Findings KUB X-Ray 08/22/24 07:00 KUB HISTORY: SBO COMPARISON STUDY: CT scan yesterday FINDINGS: There are multiple dilated small bowel loops measuring up to 5 cm diameter. There is no colonic distention. No gross free air. IMPRESSION: Stable small bowel distention. ACT 112: Negative or not required by law. The above report was generated using voice recognition software. It may contain grammatical, syntax or spelling errors. Electronically signed by: Pete Scott M.D. 08/22/2024 9:09 AM Medications Administered Acetaminophen (Ofirmev) 1,000 mg in 100 mls @ 400 mls/hr IV Q8H PRN PRN Reason: Pain/Fever Stop: 08/24/24 13:09 Last Infusion: 08/21/24 21:40 Dose: Infused Documented By: Admin: 08/21/24 21:15 Dose: 400 mls/hr Documented By: Infusion: 08/21/24 16:11 Dose: Infused Documented By: Admin: 08/21/24 15:52 Dose: 400 mls/hr Documented By: YOSELIN Pantoprazole Sodium (Protonix) 40 mg in 10 mls @ 5 mls/min IV DAILY JENNY Stop: 09/21/24 08:59 Last Admin: 08/22/24 08:49 Dose: 5 mls/min Documented By: NENA
[2024-08-22 19:53] VITALS: RESP 20
[2024-08-23 06:45] LABS: Hematocrit (blood only) 37.3 % (42.0-52.0); Hemoglobin 12.1 g/dl (14.0-18.0); Mean Corpuscular Hemoglobin 28.7 pg (25.0-34.0); Mean Corpuscular Hgb Conc 32.4 g/dL (32.0-36.0); Mean Corpuscular Volume 88.4 fL (80.0-100.0); Mean Platelet Volume 10.3 fL (9.4-12.4); Platelet Count 174 K/uL (130-400); RDW Coefficient of Variation 13.1 % (11.5-14.5); RDW Standard Deviation 41.9 fL (36.4-46.3); Red Blood Count 4.22 M/uL (4.70-6.10); White Blood Count 4.06 K/ul (4.8-10.8)
[2024-08-23 07:11] LABS: BUN Creatinine Ratio 9.9 (10-20); Calcium 8.8 mg/dl (8.6-10.3); Creatinine Clr Calc Pharmacy 124.6 ml/min; Magnesium 1.9 mg/dl (1.7-2.4); Phosphorus 2.9 mg/dl (2.5-4.9); Potassium 3.9 mmol/L (3.5-5.1)
--- NOTE | 2024-08-23 08:12 | XRay Report ---
KUB HISTORY: SBO COMPARISON STUDY: 08/22/2024 FINDINGS: There are a few mildly distended small bowel loops measuring up to 3.5 cm, improved. No oth er bowel distention seen. No gross free air. IMPRESSION: Mild small bowel distention, improved. ACT 112: Negative or not required by law. The above report was generated using voice recognition software. It may contain grammatical, syntax o r spelling errors. Electronically signed by: Pete Scott M.D. 08/23/2024 8:11 AM
[2024-08-23 08:14] VITALS: BP 125/79; PULSE 82; TEMP 98.3; O2SAT 93
--- NOTE | 2024-08-23 10:35 | Communication Note ---
Date of Service: August 23, 2024 Pt's room visited this am Pt in the restroom with BMs and passing flatus Has tested (+) for rotovirus, no SBO surgery will sign off at this time, please contact if questions or concerns arise
--- NOTE | 2024-08-23 16:37 | Discharge Summary ---
Discharge Summary Date of Service August 23, 2024 Principal Dx & Hospital Course #1 = Principal Diagnosis (1) SBO (small bowel obstruction): Jose A Avendaño is a 38y/o M with no significant PMHx who presented to the ED from home with complaints of N/V/D, diffuse abdominal pain plus generalized weakness and was found to have a SBO in addition to abnormal UA c/f possible UTI. -C. diff testing negative. Stool PCR testing pending. -Initially tachycardic but now resolved - suspect 2/2 pain. Otherwise VSS. -CTAP findings consistent with SBO with transition zone at the terminal ileum. S/p 1L NSS in ED. Plan: -Appreciate general surgery consult -continue IV fluids, promote ambulation -continue prn pain control -tolerating solid diet (2) Tobacco use disorder: -Smoke 1/2-1ppd. Denies need for nicotine patch at this time. Encourage smoking cessation. (3) Abnormal urinalysis: -UA with 6-10 WBC, 1+ bacteria and WBC casts; -Possible UTI vs. contamination as patient denies any urinary complaints Notes For Next Care Provider Jose A Avendaño is a 38y/o M with no significant PMHx who presented to the ED from home with complaints of N/V/D, diffuse abdominal pain and generalized weakness. Found to have SBO. On medicine, surgery consulted, recommended fluids, NPO. Had BM night of admission, continued to have BM throughout next day. Tolerating solids well. On 08/23/2024 patient medically stable for discharge home. Medication Changes From Visit -see below Admission HPI Per Admitting Provider Jose A Avendaño is a 38y/o M with no significant PMHx who presented to the ED from home with complaints of N/V/D, diffuse abdominal pain and generalized weakness. History obtained from the patient, significant other at bedside, discussion with ED provider and associated chart review. Notes he got his tetanus vaccine this past Sunday and has been feeling unwell since with complaints of diarrhea plus diffuse abdominal pain and generalized weakness. Started to develop nausea and vomiting this morning with subsequent lack of an appetite. Denies any SOB, palpitations or chest pain. No prior surgical history per his recollection - cannot access his PCP records through the [facility]. He cannot recall which provider he sees through the [facility]. No reported fevers. No recent trauma or injuries. Most recent BM while in the ED. Has recognized some rectal bleeding but notes this is due to his irritated hemorrhoids. Denies any dysuria or hematuria. No increase in urinary frequency either. Notes he has not passed any flatus since last evening. Feels abdominal pain is now more so in his mid lower abdominal region. Vitals in ED notable for tachycardia which is likely 2/2 pain - resolved at time of admission. EKG obtained which revealed NSR and QTc 329ms. S/p 1L NSS in ED. Labs reviewed and grossly unremarkable. UA c/f possible infe ction vs contamination with 1+ bacteria, evidence of WBC casts. C. difficile testing negative. Stool PCR testing pending. Respiratory BioFire panel negative. CTAP findings consistent with SBO with transition zone at the terminal ileum. Discharge Exam Gen: A&O 3 NAD HEENT: NCAT, EOMI, not icteric. External ears normal. No rhinorrhea. Moist mu cous membranes. Neck: Supple, full range of motion, no observable masses, No meningeal sign. Lungs: No Respiratory distress. CV: RRR, no edema. Abdomen: tender to palpation in periumbical, epigastric region MSK: No joint swelling, no redness. Skin: No rashes, petechiae, lesions. Normal color per patient. Neuro: Normal Gait, Grossly intact. Psych: Appropriate for situation. Updated Medication List Medication Instructions Recorded Confirmed Type acetaminophen 500 mg capsule 1,000 mg (2 x 500 mg) PO Q6H PRN 08/23/24 Rx fever or pain #30 caps meloxicam 7.5 mg tablet 7.5 mg PO DAILY PRN pain 14 days 08/23/24 Rx #14 tabs ondansetron 4 mg disintegrating 4 mg PO DAILY PRN nausea and 08/23/24 Rx tablet vomiting 7 days #20 tabs Hospital Stay Data Consultations 08/21/24 12:25 ED Decision to Admit Stat 08/21/24 12:27 Consult General Surgery Routine Diagnostic Imagining Performed 08/21/24 08:54 CT abd pelvis IV con only Stat Pending Results Patient Have Any Pending Studies at Discharge: No Discharge Instructions Given to Patient (Per Discharging Provider) 1. Gradually increase your diet. 2. Please stay hydrated. 3. Please follow up with PCP. Total Time Total Time Spent Total Time Spent (In Minutes): I spent a total of 35 minutes in direct patient care, including [id number] time with the patient and/or family, reviewing medical records, ordering and reviewing diagnostic tests, and coordinating care with other healthcare providers. This time includes: history taking, physical examination, medical decision making, counseling, ECG interpretation, imaging interpretation, lab interpretation, orders, and education, excluding time spent in the performance of separately billed services.
== END 2024-08-23 15:25 | disposition home or self-care (01) | DRG 392 ==
LOC: ED 08:41 → SUATTDRO 12:37 → 3W 12:37